=== PATIENT | male | born 1990 | race Caucasian/White ===

== ENCOUNTER 2016-11-23 17:05 | Observation (INO) | payer MEDICARE, MEDICAID ==
[2016-11-23] VITALS (7 sets, daily range): BP systolic 140–184; BP diastolic 66–87; PULSE 71–88; RESP 16–20; TEMP 96.9–97.7; O2SAT 98–100
[~2016-11-23] VITALS: Ht 162.6 cm; Wt 139.1 kg
[~2016-11-23 17:05] MED LIST: LAMO25 PO; METH36 PO; QUET50XR PO
--- NOTE | 2016-11-23 18:26 | PD ---
HPI Chief Complaint: Chest Pain Time Seen by Provider: 18:10 Travel History International Travel<30 days: No Contact w/Intl Traveler<30days: No Traveled to known affect area: No History of Present Illness HPI 26-year-old male presents to the emergency room via ambulance for evaluation of left-sided chest pain that started 3 hours prior to arrival. Patient was sitting down, not doing anything strenuous when pain started. Describes it as sharp, squeezing, constant. Localized to the left anterior lower chest without radiation. Pain was worsened with walking. Mother gave him baby aspirin, 3 Motrin, and Prevacid without relief in symptoms. There was no associated diaphoresis, shortness of breath, nausea, vomiting, or dizziness. Patient states pain lasted approximately 4 hours and subsided while he was in the waiting room. He asked his mom to call an ambulance after 3 hours of pain. He has history of hypercholesterolemia and hyperlipidemia but is not on any medication. His mother had open heart surgery at 38 years old. He is on Lamictal, Seroquel, and concerned for depression and ADHD. PFSH Past Medical History ADHD: Yes Autoimmune Disease: No Blood Disorders: No Bipolar Disorder: Yes Anxiety: Yes Depression: Yes Cancer: No Cardiovascular Problems: Yes High Cholesterol: Yes Diminished Hearing: No Endocrine: No Gastrointestinal Disorders: Yes (ENLARGED LIVER) Genitourinary: No Headaches: Yes Hepatitis: Yes (HX OF LIVER DISEASE - ) Immune Disorder: No Musculoskeletal: No Neurologic: No Psychiatric: Yes (SEEING PSYCHIATRIST SINCE AGE 7) Reproductive: No Respiratory: No Immunizations Current: Yes (UTD) Migraines: No Seizures: No Past Surgical History Abdominal Surgery: No Appendectomy: No Cardiac Surgery: No Cholecystectomy: No Ear Surgery: No Endocrine Surgery: No Eye Surgery: No Genitourinary Surgery: No Gynecologic Surgery: No Oral Surgery: No Thoracic Surgery: No Tympanostomy Tube: Yes (BILAT EARS) Other Surgery: Yes (LIVER BIOPSY X 3 TIMES) Social History Alcohol Use: No Tobacco Use: No Substance Use: No Allergies-Medications (Allergen,Severity, Reaction): Coded Allergies: No Known Allergies (Verified , 11/23/16) Reported Meds & Prescriptions Reported Meds & Active Scripts Active Seroquel XR (Quetiapine Fumarate) 50 Mg Tab 50 Mg PO 2 HS Concerta (Methylphenidate HCl) 36 Mg Gladis 36 Mg PO DAILY Lamictal (Lamotrigine) 25 Mg Tab 25 Mg PO DAILY Review of Systems Except as stated in HPI: all other systems reviewed are Neg Physical Exam Narrative GENERAL: Well-nourished, morbidly obese male in no acute distress. Afebrile. Ambulatory. SKIN: Focused skin assessment warm/dry. HEAD: Normocephalic. EYES: No scleral icterus. No injection or drainage. NECK: Supple, trachea midline. No JVD or lymphadenopathy. CARDIOVASCULAR: Regular rate and rhythm without murmurs, gallops, or rubs. RESPIRATORY: Breath sounds equal bilaterally. No accessory muscle use. CHEST: Nontender throughout without deformity or crepitance. No retractions or use of accessory muscles. GASTROINTESTINAL: Abdomen soft, non-tender, nondistended. Data Data Last Documented VS Vital Signs Date Time Temp Pulse Resp B/P Pulse Ox O2 Delivery O2 Flow Rate FiO2 11/23/16 19:46 85 20 140/68 98 11/23/16 19:31 Room Air 11/23/16:17 97.7 Orders Electrocardiogram (11/23/16 18:19) Basic Metabolic Panel (Bmp) (11/23/16 18:19) Ckmb (Isoenzyme) Profile (11/23/16 18:19) Complete Blood Count With Diff (11/23/16 18:19) Magnesium (Mg) (11/23/16 18:19) Prothrombin Time / Inr (Pt) (11/23/16 18:19) Act Partial Throm Time (Ptt) (11/23/16 18:19) Troponin I (11/23/16 18:19) Chest, Single Ap (11/23/16 18:19) Ecg Monitoring (11/23/16 18:19) Bilateral Bp Monitoring (11/23/16 18:19) Iv Access Insert/Monitor (11/23/16 18:19) Oximetry (11/23/16 18:19) Oxygen Administration (11/23/16 18:19) Aspirin Chew (Aspirin Chew) (11/23/16 18:30) Sodium Chloride 0.9% Flush (Ns Flush) (11/23/16 18:30) Lipase (11/23/16 18:19) Nitroglycerin Sl (Nitrostat Sl) (11/23/16 19:45) CKMB (11/23/16 19:15) CKMB% (11/23/16 19:15) Admit Order (Ed Use Only) (11/23/16 20:24) Vital Signs (Adult) Q4H (11/23/16 20:24) Cardiac Rhythm .As Directed (11/23/16 20:24) Notify Dr: Other .PRN (11/23/16 20:24) Notify Dr. 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 [place].Q8H (11/23/16 20:24) Labs Laboratory Tests Test 11/23/16 19:15 White Blood Count 11.3 TH/MM3 Red Blood Count 4.82 MIL/MM3 Hemoglobin 14.1 GM/DL Hematocrit 42.0 % Mean Corpuscular Volume 87.1 FL Mean Corpuscular Hemoglobin 29.4 PG Mean Corpuscular Hemoglobin 33.7 % Concent Red Cell Distribution Width 11.9 % Platelet Count 215 TH/MM3 Mean Platelet Volume 9.0 FL Neutrophils (%) (Auto) 72.7 % Lymphocytes (%) (Auto) 18.5 % Monocytes (%) (Auto) 5.5 % Eosinophils (%) (Auto) 2.4 % Basophils (%) (Auto) 0.9 % Neutrophils # (Auto) 8.2 TH/MM3 Lymphocytes # (Auto) 2.1 TH/MM3 Monocytes # (Auto) 0.6 TH/MM3 Eosinophils # (Auto) 0.3 TH/MM3 Basophils # (Auto) 0.1 TH/MM3 CBC Comment DIFF FINAL Differential Comment Prothrombin Time 10.8 SEC Prothromb Time International 1.0 RATIO Ratio Activated Partial 31.4 SEC Thromboplast Time Sodium Level 141 MEQ/L Potassium Level 3.8 MEQ/L Chloride Level 107 MEQ/L Carbon Dioxide Level 26.1 MEQ/L Anion Gap 8 MEQ/L Blood Urea Nitrogen 8 MG/DL Creatinine 0.85 MG/DL Estimat Glomerular Filtration 111 ML/MIN Rate Random Glucose 84 MG/DL Calcium Level 8.9 MG/DL Magnesium Level 2.1 MG/DL Total Creatine Kinase 126 U/L Creatine Kinase MB 1.5 NG/ML Troponin I LESS THAN 0.02 NG/ML Lipase 95 U/L MDM Medical Decision Making Medical Screen Exam Complete: Yes Emergency Medical Condition: Yes Medical Record Reviewed: Yes Differential Diagnosis Pancreatitis, CAD, gas pain, angina Narrative Course 26-year-old male presents to the emergency room via ambulance for evaluation of left-sided sharp/squeezing chest pain without radiation that lasted about 4 hours. Patient was asymptomatic on evaluation. Patient was resting when it started. No associated symptoms. IV access established and patient placed on cardiac telemetry. EKG shows sinus arrhythmia, similar from previous. No concern for ST changes, signed off by my attending physician. Patient's did have recurrence of pain while in the ED and was given sublingual nitroglycerin which did not improve symptoms. CBC and BMP are unremarkable. Troponin and lipase are negative. Patient has strong family history of early onset cardiac disease, is morbidly obese, and has dyslipidemia. Given risk factors, he should be evaluated for cardiac etiology of pain. Patient will be admitted to chest pain center for further tests. He understands and agrees to plan. Diagnosis Primary Impression: Chest pain Qualified Code: R07.9 - Chest pain, unspecified type Admitting Information Admitting Physician Requests: Observation Condition: Stable Shelley Radford Nov 23, 2016 18:26 Shelley Radford Nov 23, 2016 18:26
[2016-11-23] MEDS ORDERED: ASPIRIN 81 MG CHEW TAB PO ONE (18:30)
[2016-11-23] MEDS ORDERED: SODIUM CHLORIDE 0.9% FLUSH 10 ML FLUSH IVF PRN (18:30)
--- NOTE | 2016-11-23 18:53 | RADRPT ---
EXAM DATE/TIME: 11/23/2016 18:33 [facility] COMPARISON: No previous studies available for comparison. INDICATIONS : Left chest pain. MEDICAL HISTORY : None. SURGICAL HISTORY : None. ENCOUNTER: Initial ACUITY: 1 day PAIN SCORE: 3/10 LOCATION: Left chest FINDINGS: A single view of the chest demonstrates the lungs to be symmetrically aerated without evidence of mas s, infiltrate or effusion. The cardiomediastinal contours are unremarkable. Osseous structures are intact. CONCLUSION: No acute disease. Cortez Vuong MD on November 23, 2016 at 18:51 Board Certified Radiologist. This report was verified electronically.
[2016-11-23 19:24] LABS: AUTOMATED NEUTROPHIL # 8.2 TH/MM3 (1.8-7.7); BASOPHIL # 0.1 TH/MM3 (0-0.2); BASOPHIL % 0.9 % (0.0-2.0); EOSINOPHIL # 0.3 TH/MM3 (0-0.4); EOSINOPHIL % 2.4 % (0.0-4.0); HEMO FLAGS DIFF FINAL; LYMPH % 18.5 % (9.0-44.0); LYMPHOCYTE # 2.1 TH/MM3 (1.0-4.8); MEAN CELL VOLUME 87.1 FL (80.0-100.0); MEAN CORPUSCULAR HEMOGLOBIN 29.4 PG (27.0-34.0); MEAN CORPUSCULAR HGB CONC 33.7 % (32.0-36.0); MONO % 5.5 % (0.0-8.0); NEUT % 72.7 % (16.0-70.0); PLATELET COUNT 215 TH/MM3 (150-450); RED BLOOD COUNT 4.82 MIL/MM3 (4.50-5.90); RED CELL DISTRIBUTION WIDTH 11.9 % (11.6-17.2); WHITE BLOOD COUNT 11.3 TH/MM3 (4.0-11.0)
[2016-11-23 19:32] LABS: CHLORIDE 107 MEQ/L (98-107); POTASSIUM 3.8 MEQ/L (3.5-5.1); SODIUM (NA) 141 MEQ/L (136-145)
[2016-11-23 19:35] LABS: ANION GAP 8 MEQ/L (5-15); BICARBONATE 26.1 MEQ/L (21.0-32.0)
[2016-11-23 19:36] LABS: BLOOD UREA NITROGEN 8 MG/DL (7-18); MAGNESIUM 2.1 MG/DL (1.5-2.5)
[2016-11-23 19:38] LABS: APTT (PATIENT) 31.4 SEC (24.3-30.1); PROTHROMBIN TIME - PATIENT 10.8 SEC (9.8-11.6)
[2016-11-23 19:39] LABS: GLOMERULAR FILTRATION RATE 111 ML/MIN (>89)
[2016-11-23 19:42] LABS: CREATINE KINASE 126 U/L (39-308)
[2016-11-23] MEDS ORDERED: NITROGLYCERIN 0.4 MG SL 25 TABS/BTL SL ONE (19:45)
[2016-11-23 19:54] LABS: CKMB 1.5 NG/ML (0.5-3.6)
[2016-11-23 22:22] LABS: CREATINE KINASE 113 U/L (39-308)
[2016-11-23] MEDS ORDERED: NALOXONE HCL 0.4 MG/ML AMP IV PRN (22:30)
[2016-11-23] MEDS ORDERED: ONDANSETRON HCL 4 MG/2 ML VIAL IVP PRN (22:30)
[2016-11-23 22:35] LABS: CKMB 1.3 NG/ML (0.5-3.6)
[2016-11-23] MEDS: ACETAMINOPHEN 325 MG TAB PO PRN (22:41)
[2016-11-24] VITALS: BP 150/87; PULSE 77; RESP 20; TEMP 97.4; O2SAT 99
[2016-11-24 01:00] VITALS: O2SAT 98
[2016-11-24 03:21] LABS: CREATINE KINASE 135 U/L (39-308)
[2016-11-24] MEDS: ACETAMINOPHEN 325 MG TAB PO PRN (03:26)
[2016-11-24 03:33] LABS: CKMB 1.7 NG/ML (0.5-3.6)
[2016-11-24 04:00] VITALS: BP 162/91; PULSE 63; RESP 21; TEMP 96; O2SAT 99
[2016-11-24] MEDS: NITROGLYCERIN 0.4 MG SL 25 TABS/BTL SL PRN ×2 (04:29→04:36)
[2016-11-24] MEDS ORDERED: KETOROLAC TROMETHAMINE 30 MG/ML (IVP) VIAL IV PUSH ONE (05:00)
[2016-11-24 08:00] VITALS: BP 148/90; PULSE 91; RESP 21; TEMP 96; O2SAT 96; O2SAT 98
[2016-11-24] MEDS ORDERED: MORPHINE SULFATE 4 MG/ML INJ IV PRN (08:15)
[2016-11-24] MEDS ORDERED: ACETAMINOPHEN/HYDROcodone 325 MG/7.5 MG TAB PO PRN (08:15)
[2016-11-24] MEDS ORDERED: cloNIDine HCL 0.1 MG TAB PO PRN (08:30)
--- NOTE | 2016-11-24 08:31 | HHI.HP ---
[facility] No Primary Care Physician Admission Diagnosis chest pain Diagnoses: (1) Chest pain Diagnosis: Principal (2) Hypertensive urgency Diagnosis: Principal Chief Complaint: chest pain Travel History International Travel<30 Days: No Contact w/Intl Traveler <30 Da: No Traveled to Known Affected Are: No History of Present Illness Written by Jannette Pritchett PA-C acting as scribe for Dr. Campos on 11/24/16 at 0820. 26-year-old male with history of autism, depression, benign liver tumors, hypercholesterolemia/triglyceridemia, and early family history of CAD is admitted to chest pain center. [id number] present at bedside with patient 's mother on the phone who assisted with medical history. The patient points to his left anterior lower ribs as the site of pain stating it started at 2 PM yesterday and occurred over the entire night. He describes the pain as sharp and stabbing rating it a 9-10/10. He states he took 2 baby aspirin at home without relief. He denies any pain currently. Denies any radiation elsewhere including to the upper chest. Denies any numbness or tingling or diaphoresis. He denies any nausea, vomiting, diarrhea, constipation. His last bowel movement was yesterday. He denies any hematochezia or melena. Denies any fevers or chills, recent cold or cough symptoms. Denies any urinary symptoms. Denies any injuries or heavy lifting. Review of Systems Except as stated in HPI: all other systems reviewed are Neg Past Family Social History Past Medical History Hypercholesterolemia Hypertriglyceridemia Autism Major depression Benign liver tumors; had ultrasound recently. Past Surgical History Liver biopsy Reported Medications Reported Meds & Active Scripts Active Seroquel XR (Quetiapine Fumarate) 50 Mg Tab 50 Mg PO 2 HS Concerta (Methylphenidate HCl) 36 Mg Gladis 36 Mg PO DAILY Lamictal (Lamotrigine) 25 Mg Tab 25 Mg PO DAILY Allergies: Coded Allergies: No Known Allergies (Verified , 11/23/16) Family History Mother: 3 open heart surgeries starting at the age of 38. Social History Denies alcohol use, tobacco use, or illicit drug use. Physical Exam Vital Signs Vital Signs Date Time Temp Pulse Resp B/P Pulse Ox O2 Delivery O2 Flow Rate FiO2 11/24/16 04:00 96.0 63 21 162/91 99 11/24/16 01:00 98 21 11/24/16 00:00 97.4 77 20 150/87 99 11/23/16 23:03 84 11/23/16 21:30 88 11/23/16 20:54 96.9 80 20 144/86 99 11/23/16 19:46 85 20 140/68 98 11/23/16 19:31 84 18 166/66 99 Room Air 152/70 11/23/16 18:24 100 Room Air 11/23/16 18:24 18 100 Room Air 11/23/16 18:17 97.7 71 16 184/87 100 Physical Exam GENERAL: This is a pleasant morbidly obese patient, in no apparent distress. SKIN: No rashes, ecchymoses or lesions. Warm and dry. HEAD: Atraumatic. Normocephalic. EYES: No scleral icterus. No injection or drainage. NECK: No lymphadenopathy. CHEST: No reproducible tenderness over anterior and lateral left lower ribs. CARDIOVASCULAR: Regular rate and rhythm without murmurs, gallops, or rubs. RESPIRATORY: Clear to auscultation. Breath sounds equal bilaterally. No wheezes , rales, or rhonchi. GASTROINTESTINAL: Abdomen soft, non-tender, nondistended. No guarding. MUSCULOSKELETAL: No lower extremity edema bilaterally. NEUROLOGICAL: Awake and alert. Motor grossly within normal limits. Normal speech. PSYCHIATRIC: Normal mood and affect. Laboratory Laboratory Tests Test 11/23/16 11/23/16 11/24/16 19:15 21:56 03:00 White Blood Count 11.3 Red Blood Count 4.82 Hemoglobin 14.1 Hematocrit 42.0 Mean Corpuscular Volume 87.1 Mean Corpuscular Hemoglobin 29.4 Mean Corpuscular Hemoglobin 33.7 Concent Red Cell Distribution Width 11.9 Platelet Count 215 Mean Platelet Volume 9.0 Neutrophils (%) (Auto) 72.7 Lymphocytes (%) (Auto) 18.5 Monocytes (%) (Auto) 5.5 Eosinophils (%) (Auto) 2.4 Basophils (%) (Auto) 0.9 Neutrophils # (Auto) 8.2 Lymphocytes # (Auto) 2.1 Monocytes # (Auto) 0.6 Eosinophils # (Auto) 0.3 Basophils # (Auto) 0.1 CBC Comment DIFF FINAL Differential Comment Prothrombin Time 10.8 Prothromb Time International 1.0 Ratio Activated Partial 31.4 Thromboplast Time Sodium Level 141 Potassium Level 3.8 Chloride Level 107 Carbon Dioxide Level 26.1 Anion Gap 8 Blood Urea Nitrogen 8 Creatinine 0.85 Estimat Glomerular Filtration 111 Rate Random Glucose 84 Calcium Level 8.9 Magnesium Level 2.1 Total Creatine Kinase 126 113 135 Creatine Kinase MB 1.5 1.3 1.7 Troponin I LESS THAN 0.02 LESS THAN 0.02 LESS THAN 0.02 Lipase 95 Result Diagram: 11/23/16191411/23/161914 Imaging Last Impressions Chest X-Ray 11/23/161818 Signed Impressions: Service Date/Time: Wednesday, November 23, 2016 18:33 - CONCLUSION: No acute disease. Cortez Vuong MD Assessment and Plan Problem List: (1) Chest pain ICD Code: R07.9 Status: Acute Assessment and Plan 26-year-old male with: Atypical chest pain: Left lower ribs, sharp lasting all night. Troponin 3 less than 0.02. EKGs personally interpreted. EKG #1 with sinus arrhythmia, but remaining two EKGs with normal sinus rhythm. No obvious evidence of ischemia. Chest x-ray normal. Patient has risk factors including morbid obesity, hyperlipidemia, and family history of early onset coronary artery disease. He additionally has been hypertensive. -Daily 325 mg aspirin -Telemetry -Nitroglycerin/[place]/morphine prn chest pain -Patient will undergo Lexiscan this morning. Hypertensive urgency: BP 184/87 on arrival. Has improved somewhat but still remains elevated. -Clonidine prn SBP>160 and/or DBP >90. -Monitor Autism/Depression: Continue home medications. GI prophylaxis: Pepcid due to aspirin use. DVT prophylaxis: SCDs. Myocardial perfusion scan normal. Mother at bedside this afternoon, she and patient informed of results. Telemetry reviewed with sinus arrhythmia, and mother informed; likely chronic as patient had this on EKG from 2010 as well. Patient's BP improved but SBP still in 140's. Mother states it has been high. Mother advised to keep log at home and follow up with PCP regarding this as well as cholesterol. Discharge disposition: Home in stable condition. Diet: Heart healthy, low fat, weight management. Patient advised accordingly. Activity: Regular Medications: Resume home meds. Follow up: PCP Dr. Barba. Patient's mother is somnolent and cannot remain awake while I speak to her. I have asked the nurse to ensure that someone else can safely drive she and the patient home as I do not feel it is safe for her to drive the patient at this time. This note was transcribed by fish PUENTE I, Dr. Ángel Campos personally performed the history, physical exam, and medical decision making; and confirmed the accuracy of the information in the transcribed note. Authenticated by Dr. Ángel Campos on 11/24/16 at 08:21. Code Status Full code Discussed Condition With patient, [id number] Problem Qualifiers (1) Chest pain: Qualified Code: R07.9 - Chest pain, unspecified type Jannette Pritchett Nov 24, 2016 08:31 Ángel Campos MD Nov 24, 2016 08:38
[2016-11-24] MEDS ORDERED: FAMOTIDINE 20 MG TAB PO SCH (09:00)
[2016-11-24] MEDS ORDERED: ASPIRIN 325 MG TAB PO SCH (09:00)
[2016-11-24 12:00] VITALS: BP 142/91; PULSE 88; RESP 20; TEMP 98; O2SAT 97
--- NOTE | 2016-11-24 13:58 | RADRPT ---
EXAM DATE/TIME: 11/24/2016 11:57 [facility] COMPARISON: No previous studies available for comparison. INDICATIONS : Chest pain and hypertension. Angina. DOSE: 35.0 mCi Tc99m Myoview at stress. 11.0 mCi Tc99m Myoview at rest. 0.4 mg Lexiscan STRESS SYMPTOMS: weird feeling and heart racing. EJECTION FRACTION: 58% MEDICAL HISTORY : Hypercholesterolemia. Autism. SURGICAL HISTORY : Liver biopsy. ENCOUNTER: Initial ACUITY: 1 day PAIN SCALE: 1/10 LOCATION: Bilateral chest TECHNIQUE: The patient underwent pharmacologic stress with infusion of prescribed dose. Continuous ECG tracing was monitored during stress. Gated SPECT imaging was performed after stress and conventional SPECT i maging was performed at rest. The examination was performed on a SPECT/CT scanner, both attenuation and non-corrected datasets were reviewed. FINDINGS: DISTRIBUTION: The maximum perfused segment at stress is in the inferior wall. PERFUSION STUDY: The pattern of perfusion at stress is within normal limits. GATED STUDY: There is intact wall motion and thickening without hypokinetic or dyskinetic segments. CONCLUSION: No evidence of fixed or reversible perfusion abnormalities. Normal wall motion and ejection fraction. RISK CATEGORY: Low (<1% Annual Mortality Rate) Kale Lentz MD on November 24, 2016 at 13:55 Board Certified Radiologist. This report was verified electronically.
--- NOTE | 2016-11-24 14:53 | TR ---
Date Performed: 11/24/2016 Time Performed: 12:39:30 DOCTOR: Sundar Pastor DRUG LIST: CLINICAL HISTORY: REASON FOR TEST: REASON FOR ENDING: OBSERVATION: CONCLUSION: Lexiscan stress test was performed under standard four minute protocol. Radionuclid e was injected one minute prior to ending the test. No electrocardiographic abormalities were present to suggest ischemia. Nuclear imaging and interpretation are pending. COMMENTS:
--- NOTE | 2016-11-24 14:55 | EKG ---
Date Performed: 11/24/2016 Time Performed: 01:06:06 PTAGE: 26 years EKG: Sinus rhythm MODERATE VOLTAGE CRITERIA FOR LVH, CONSIDER NORMAL VARIANT BORDERLINE ECG PREVIOUS TRACING : 11/23/2016 21.50 Since previous tracing, no significant change noted DOCTOR: Sundar Pastor Interpretating Date/Time 11/24/2016 14:53:52
--- NOTE | 2016-11-24 14:56 | EKG ---
Date Performed: 11/23/2016 Time Performed: 21:50:40 PTAGE: 26 years EKG: Sinus rhythm VOLTAGE CRITERIA FOR LVH NONSPECIFIC T-WAVE ABNORMALITY ABNORMAL ECG PREVIOUS TRACING : 11/23/2016 18.29 Since previous tracing, no significant change noted DOCTOR: Sundar Pastor Interpretating Date/Time 11/24/2016 14:55:15
--- NOTE | 2016-11-24 14:59 | EKG ---
Date Performed: 11/23/2016 Time Performed: 18:29:12 PTAGE: 26 years EKG: Sinus rhythm WITH SINUS ARRHYTHMIA MODERATE VOLTAGE CRITERIA FOR LVH, CONSIDER NORMAL VARIANT NONSPECIFIC T-WAVE ABNORMALITY BORDERLINE ECG PREVIOUS TRACING : 07/31/2010 12.18 Since previous tracing, no significant change noted DOCTOR: Sundar Pastor Interpretating Date/Time 11/24/2016 14:57:44
--- NOTE | 2016-11-24 15:03 | HHI.DCPOC ---
Discharge Care Plan Diagnosis: (1) Chest pain (2) Hypertensive urgency Your Health Problems Are: Chest Pain Goals to Promote Your Health * To prevent worsening of your condition and complications * To maintain your health at the optimal level Directions to Meet Your Goals Take your medications as prescribed Follow your dietary instruction Follow activity as directed Keep your appointments as scheduled Take your immunizations and boosters as scheduled If your symptoms worsen call your PCP, if no PCP go to Urgent Care Center or Emergency Room Smoking is Dangerous to Your Health. Avoid second hand smoke Call the 24-hour hour crisis hotline for domestic abuse at Jannette Pritchett Nov 24, 2016 15:03
== END 2016-11-24 16:43 | disposition home or self-care (01) ==
LOC: PHEFT 17:05 → PHEDA 20:27 → PH3B 20:54
PROVIDERS: ADMIT Hospitalist; ATTEND Hospitalist
DX: R07.89 Other chest pain (principal); I16.0 Hypertensive urgency; I10 Essential (primary) hypertension; E78.5 Hyperlipidemia, unspecified; E78.00 Pure hypercholesterolemia, unspecified; E78.1 Pure hyperglyceridemia; K75.9 Inflammatory liver disease, unspecified; R94.31 Abnormal electrocardiogram [ECG] [EKG]; F41.9 Anxiety disorder, unspecified; F90.9 Attention-deficit hyperactivity disorder, unspecified type; E66.01 Morbid (severe) obesity due to excess calories; F31.9 Bipolar disorder, unspecified; F84.0 Autistic disorder; Z79.899 Other long term (current) drug therapy; Z82.49 Family history of ischemic heart disease and other diseases of the circulatory system
CPT/HCPCS: 71010; 78452; 80048; 82550; 82552; 83690; 83735; 84484; 85025; 85610; 85730; 93005; 93017; 96374; 96376; 99285; A9502; G0378; J1885

== ENCOUNTER 2017-01-23 14:07 | Observation (INO) | payer MEDICARE, MEDICAID ==
[~2017-01-23] VITALS: Ht 167.6 cm; Wt 140.0 kg
[2017-01-23 14:10] VITALS: BP 143/92; PULSE 83; RESP 18; TEMP 97.8; O2SAT 98
--- NOTE | 2017-01-23 14:15 | PD ---
Physical Exam Time Seen by Provider: 14:12 Narrative 27-year-old male presents emergency Department with complaint of left-sided chest pain that started about an hour ago. Described as stabbing sensation. Reports an episode of dry heaving without vomiting. No radiation of pain. Denies recent illness. Denies shortness of breath, fever. Patient seen in triage. Vital signs reviewed. Patient awaiting bed placement. Data Data Last Documented VS Vital Signs Date Time Temp Pulse Resp B/P (MAP) Pulse Ox O2 Delivery O2 Flow Rate FiO2 01/23/17 14:10 97.8 83 18 143/92 (109) 98 MDM Supervised Visit with NOEMÍ: Ayaka Smith Jan 23, 2017 14:14
--- NOTE | 2017-01-23 15:46 | RADRPT ---
EXAM DATE/TIME: 01/23/2017 14:32 [facility] COMPARISON: No previous studies available for comparison. INDICATIONS : Chest pain. MEDICAL HISTORY : Hypertension. SURGICAL HISTORY : None. ENCOUNTER: Initial ACUITY: 1 day PAIN SCORE: 8/10 LOCATION: Bilateral chest FINDINGS: PA and lateral views of the chest demonstrate the lungs to be symmetrically aerated without evidence of mass, infiltrate or effusion. The cardiomediastinal contours are unremarkable. Osseous structure s are intact. CONCLUSION: Normal examination. Dereje Jiménez Jr., MD on January 23, 2017 at 15:43 Board Certified Radiologist. This report was verified electronically.
[2017-01-23 18:01] VITALS: BP 118/72; PULSE 69; RESP 23; O2SAT 99
[2017-01-23] MEDS ORDERED: QUET50XR PO (18:01)
[2017-01-23] MEDS ORDERED: SODIUM CHLORIDE 0.9% FLUSH 10 ML FLUSH IVF PRN (18:30)
--- NOTE | 2017-01-23 18:33 | PD ---
HPI Chief Complaint: Chest Pain Time Seen by Provider: 18:23 Travel History International Travel<30 days: No Contact w/Intl Traveler<30days: No Traveled to known affect area: No History of Present Illness HPI 27-year-old male patient history of hypertension, diabetes, and a very strong family history of cardiac disease presents to the ER today with one-day history of left chest pain which she stated was a 9 out of 10 initially, now 4 out of 10 , related to nausea and some dry heaving. He denies any vomiting, fevers, diarrhea, abdominal pains, or other symptoms now. He apparently was told by his office clin asst, Dr. Davis, to come to the hospital for further evaluation. Modifying Factors: None Associated Signs & Symptoms: Chest pain Risk Factors: High blood pressure, high cholesterol, diabetes, family history of heart disease PFSH Past Medical History ADHD: Yes Autoimmune Disease: No Blood Disorders: No Bipolar Disorder: Yes Anxiety: No (patient denies) Depression: No (patient denies) Cancer: No Cardiovascular Problems: Yes High Cholesterol: Yes Chest Pain: Yes Diminished Hearing: No Endocrine: No Gastrointestinal Disorders: Yes (ENLARGED LIVER) Genitourinary: No Headaches: Yes Immune Disorder: No Implanted Vascular Access Dvce: No Musculoskeletal: No Neurologic: No Psychiatric: Yes (SEEING PSYCHIATRIST SINCE AGE 7) Reproductive: No Respiratory: No Immunizations Current: Yes (UTD) Migraines: No Seizures: No Past Surgical History Abdominal Surgery: No Appendectomy: No Cardiac Surgery: No Cholecystectomy: No Ear Surgery: No Endocrine Surgery: No Eye Surgery: No Genitourinary Surgery: No Gynecologic Surgery: No Neurologic Surgery: No Oral Surgery: No Thoracic Surgery: No Tympanostomy Tube: Yes (BILAT EARS) Other Surgery: Yes (LIVER BIOPSY X 3 TIMES) Social History Alcohol Use: No Tobacco Use: No Substance Use: No Allergies-Medications (Allergen,Severity, Reaction): Coded Allergies: No Known Allergies (Verified , 01/23/17) Reported Meds & Prescriptions Reported Meds & Active Scripts Active Lamictal (Lamotrigine) 25 Mg Tab 25 Mg PO DAILY Reported Amitiza (Lubiprostone) 8 Mcg Cap 8 Mg PO BID Lactulose 10 Gram/15 Ml (15 Ml) Solution Seroquel XR (Quetiapine Fumarate) 50 Mg Tab 100 Mg PO HS Review of Systems Except as stated in HPI: all other systems reviewed are Neg Physical Exam Narrative GENERAL: Well-developed obese young white male patient currently in no acute distress. Awake and oriented 3. SKIN: Focused skin assessment warm/dry. HEAD: Atraumatic. Normocephalic. EYES: Pupils equal and round. No scleral icterus. No injection or drainage. ENT: No nasal bleeding or discharge. Mucous membranes pink and moist. NECK: Trachea midline. No JVD. CARDIOVASCULAR: Regular rate and rhythm. No murmur appreciated. Pulses are present and equal bilaterally. RESPIRATORY: No accessory muscle use. Clear to auscultation. Breath sounds equal bilaterally. GASTROINTESTINAL: Abdomen soft, non-tender, nondistended. Hepatic and splenic margins not palpable. MUSCULOSKELETAL: No obvious deformities. No clubbing. No cyanosis. No edema. NEUROLOGICAL: Awake and alert. No obvious cranial nerve deficits. Motor grossly within normal limits. Normal speech. PSYCHIATRIC: Appropriate mood and affect; insight and judgment normal. Data Data Last Documented VS Vital Signs Date Time Temp Pulse Resp B/P (MAP) Pulse Ox O2 Delivery O2 Flow Rate FiO2 01/23/17 18:34 100 Room Air 01/23/17 18:34 01/23/17 18:01 69 23 01/23/17 14:10 97.8 Orders Orders Electrocardiogram (01/23/17 14:15) Chest, Pa & Lat (01/23/17 14:15) Electrocardiogram (01/23/17 18:23) B-Type Natriuretic Peptide (01/23/17 18:) Ckmb (Isoenzyme) Profile (01/23/17 18:) Complete Blood Count With Diff (01/23/17 18:) Comprehensive Metabolic Panel (01/23/17 18:) Magnesium (Mg) (01/23/17 18:) Prothrombin Time / Inr (Pt) (01/23/17 18:) Act Partial Throm Time (Ptt) (01/23/17:) Troponin I (01/23/17:) Chest, Single Ap (01/23/17 18:) Ecg Monitoring (01/23/17 18:) Bilateral Bp Monitoring (01/23/17 18:) Iv Access Insert/Monitor (01/23/17:) Oximetry (01/23/17:) Oxygen Administration (01/23/17 18:23) Sodium Chloride 0.9% Flush (Ns Flush) (01/23/17 18:30) CKMB (01/23/17 18:20) CKMB% (01/23/17 18:20) Labs Laboratory Tests Test 01/23/17 18:20 Blood Urea Nitrogen 9 MG/DL Creatinine 0.82 MG/DL Random Glucose 77 MG/DL Total Protein 7.8 GM/DL Albumin 3.8 GM/DL Calcium Level 8.9 MG/DL Magnesium Level 2.0 MG/DL Alkaline Phosphatase 69 U/L Aspartate Amino Transf (AST/SGOT) 56 U/L Alanine Aminotransferase (ALT/SGPT) 74 U/L Total Bilirubin 0.4 MG/DL Sodium Level 138 MEQ/L Potassium Level 4.6 MEQ/L Chloride Level 105 MEQ/L Carbon Dioxide Level 24.4 MEQ/L Anion Gap 9 MEQ/L Estimat Glomerular Filtration Rate 114 ML/MIN Total Creatine Kinase 212 U/L Creatine Kinase MB 1.3 NG/ML Troponin I LESS THAN 0.02 NG/ML MDM Medical Decision Making Medical Screen Exam Complete: Yes Emergency Medical Condition: Yes Medical Record Reviewed: Yes Interpretation(s) EKG shows NSR, no ST elevation or depression, and no arrhythmias. No significant T-wave inversions. Last 24 hours Impressions Chest X-Ray 01/23/17 1415 Signed Impressions: Service Date/Time: Monday, January 23, 2017 14:32 - CONCLUSION: Normal examination. Dereje Jiménez Jr., MD Laboratory Tests Test 01/23/17 18:20 Aspartate Amino Transf (AST/SGOT) 56 U/L (15-37) Troponin I LESS THAN 0.02 NG/ML Differential Diagnosis Chest pains: ACS versus pneumonia versus anxiety versus gastritis Narrative Course Cardiac workup was initiated. Case is discussed with Dr. Davis who states that if negative, patient can be admitted to chest pain center for further evaluation. Physician Communication Physician Communication Case signed out to Dr. Paul at 7 PM awaiting finish workup. Diagnosis Primary Impression: Chest pain Admitting Information Admitting Physician Requests: it Karen Danielle MD Jan 23, 2017 18:33
[2017-01-23 18:34] VITALS: O2SAT 100
[2017-01-23] MEDS ORDERED: AMIT8CAP6 PO (18:43)
[2017-01-23] MEDS ORDERED: LACT10SO5 (18:43)
[2017-01-23 18:59] LABS: ALT (GPT) 74 U/L (12-78)
[2017-01-23 19:01] LABS: ANION GAP 9 MEQ/L (5-15)
[2017-01-23 19:03] LABS: ALKALINE PHOSPHATASE 69 U/L (45-117); AST (GOT) 56 U/L (15-37); BICARBONATE 24.4 MEQ/L (21.0-32.0); BLOOD UREA NITROGEN 9 MG/DL (7-18); CHLORIDE 105 MEQ/L (98-107); CREATINE KINASE 212 U/L (39-308); GLOMERULAR FILTRATION RATE 114 ML/MIN (>89); SODIUM (NA) 138 MEQ/L (136-145); TOTAL BILIRUBIN ADULT 0.4 MG/DL (0.2-1.0)
[2017-01-23 19:07] LABS: POTASSIUM 4.6 MEQ/L (3.5-5.1)
[2017-01-23 19:20] LABS: CKMB 1.3 NG/ML (0.5-3.6)
--- NOTE | 2017-01-23 19:40 | RADRPT ---
EXAM DATE/TIME: 01/23/2017 18:56 [facility] COMPARISON: CHEST SINGLE AP, November 23, 2016, 18:33. INDICATIONS : Left sided chest pain starting today MEDICAL HISTORY : Hypertension. SURGICAL HISTORY : None. ENCOUNTER: Initial ACUITY: 1 day PAIN SCORE: 7/10 LOCATION: Left chest FINDINGS: A single view of the chest demonstrates the lungs to be symmetrically aerated without evidence of mas s, infiltrate or effusion. The cardiomediastinal contours are unremarkable. Osseous structures are intact. CONCLUSION: No acute disease. No significant change has occurred. Marcelino Hummel MD on January 23, 2017 at 19:38 Board Certified Radiologist. This report was verified electronically.
[2017-01-23 21:04] LABS: AUTOMATED NEUTROPHIL # 8.4 TH/MM3 (1.8-7.7); BASOPHIL # 0.1 TH/MM3 (0-0.2); BASOPHIL % 0.7 % (0.0-2.0); EOSINOPHIL # 0.1 TH/MM3 (0-0.4); EOSINOPHIL % 1.3 % (0.0-4.0); HEMATOCRIT 44.7 % (39.0-51.0); HEMO FLAGS DIFF FINAL; LYMPHOCYTE # 2.3 TH/MM3 (1.0-4.8); MEAN CELL VOLUME 87.3 FL (80.0-100.0); MEAN CORPUSCULAR HEMOGLOBIN 29.7 PG (27.0-34.0); MONO % 5.7 % (0.0-8.0); NEUT % 72.3 % (16.0-70.0); PLATELET COUNT 222 TH/MM3 (150-450); RED BLOOD COUNT 5.12 MIL/MM3 (4.50-5.90); RED CELL DISTRIBUTION WIDTH 12.8 % (11.6-17.2); WHITE BLOOD COUNT 11.6 TH/MM3 (4.0-11.0)
[2017-01-23 21:11] LABS: APTT (PATIENT) 30.8 SEC (24.3-30.1); PROTHROMBIN TIME - PATIENT 10.6 SEC (9.8-11.6)
--- NOTE | 2017-01-23 21:17 | PD ---
Physical Exam Narrative Received sign out from previous team to follow up labs and admit to chest pain center. Please see previous provider's note for further details. 27yo M with HTN, DM sent here by spring machine operator Dr. Davis for evaluation of chest pain. Plan was to admit to chest pain center if enzyme negative. Labs reviewed , CMP unremarkable except for elevation or AST which he has had before. Troponin negative. CXR showed no acute disease. Pt evaluated at bedside and chest pain has improved. Agreed with plan. Data Data Last Documented VS Vital Signs Date Time Temp Pulse Resp B/P (MAP) Pulse Ox O2 Delivery O2 Flow Rate FiO2 01/23/17 18:34 100 Room Air 01/23/17 18:34 01/23/17 18:01 69 23 01/23/17 14:10 97.8 Orders Orders Electrocardiogram (01/23/17 14:15) Chest, Pa & Lat (01/23/17 14:15) Electrocardiogram (01/23/17 18:) B-Type Natriuretic Peptide (01/23/17 18:) Ckmb (Isoenzyme) Profile (01/23/17 18:) Complete Blood Count With Diff (01/23/17:) Comprehensive Metabolic Panel (01/23/17 18) Magnesium (Mg) (01/23/17:) Prothrombin Time / Inr (Pt) (01/23/17) Act Partial Throm Time (Ptt) (01/23/17:) Troponin I (01/23/17 18:) Chest, Single Ap (01/23/17 18:) Ecg Monitoring (01/23/17) Bilateral Bp Monitoring (01/23/17:) Iv Access Insert/Monitor (01/23/17) Oximetry (01/23/17 18:) Oxygen Administration (01/23/17:) Sodium Chloride 0.9% Flush (Ns Flush) (01/23/17 18:30) CKMB (01/23/17 18:) CKMB% (01/23/17 18:) Labs Laboratory Tests Test 01/23/17 18:20 01/23/17 20:50 Blood Urea Nitrogen 9 MG/DL Creatinine 0.82 MG/DL Random Glucose 77 MG/DL Total Protein 7.8 GM/DL Albumin 3.8 GM/DL Calcium Level 8.9 MG/DL Magnesium Level 2.0 MG/DL Alkaline Phosphatase 69 U/L Aspartate Amino Transf (AST/SGOT) 56 U/L Alanine Aminotransferase (ALT/SGPT) 74 U/L Total Bilirubin 0.4 MG/DL Sodium Level 138 MEQ/L Potassium Level 4.6 MEQ/L Chloride Level 105 MEQ/L Carbon Dioxide Level 24.4 MEQ/L Anion Gap 9 MEQ/L Estimat Glomerular Filtration Rate 114 ML/MIN Total Creatine Kinase 212 U/L Creatine Kinase MB 1.3 NG/ML Troponin I LESS THAN 0.02 NG/ML White Blood Count 11.6 TH/MM3 Red Blood Count 5.12 MIL/MM3 Hemoglobin 15.2 GM/DL Hematocrit 44.7 % Mean Corpuscular Volume 87.3 FL Mean Corpuscular Hemoglobin 29.7 PG Mean Corpuscular Hemoglobin Concent 34.0 % Red Cell Distribution Width 12.8 % Platelet Count 222 TH/MM3 Mean Platelet Volume 9.1 FL Neutrophils (%) (Auto) 72.3 % Lymphocytes (%) (Auto) 20.0 % Monocytes (%) (Auto) 5.7 % Eosinophils (%) (Auto) 1.3 % Basophils (%) (Auto) 0.7 % Neutrophils # (Auto) 8.4 TH/MM3 Lymphocytes # (Auto) 2.3 TH/MM3 Monocytes # (Auto) 0.7 TH/MM3 Eosinophils # (Auto) 0.1 TH/MM3 Basophils # (Auto) 0.1 TH/MM3 CBC Comment DIFF FINAL Differential Comment Prothrombin Time 10.6 SEC Prothromb Time International Ratio 1.0 RATIO Activated Partial Thromboplast Time 30.8 SEC [facility] Supervised Visit with NOEMÍ: No Diagnosis Primary Impression: Chest pain Qualified Codes: R07.9 - Chest pain, unspecified Admitting Information Admitting Physician Requests: Sheela Steel DO Jan 23, 2017 21:17
[2017-01-23] MEDS ORDERED: SODIUM CHLORIDE 0.9% FLUSH 10 ML FLUSH IV FLUSH PRN (21:30)
[2017-01-23 22:16] VITALS: BP 143/88; PULSE 87; RESP 16; O2SAT 100
[2017-01-23 22:25] VITALS: BP 149/79; PULSE 86; RESP 16; TEMP 98.5; O2SAT 98
[2017-01-23 23:13] LABS: CREATINE KINASE 144 U/L (39-308)
[2017-01-23 23:26] LABS: CKMB 1.2 NG/ML (0.5-3.6)
[2017-01-24 02:27] LABS: CREATINE KINASE 117 U/L (39-308)
[2017-01-24 03:24] VITALS: BP 119/69; PULSE 78; RESP 17; TEMP 98.3; O2SAT 97
--- NOTE | 2017-01-24 07:57 | HHI.HP ---
HPI Primary Care Physician Scott Barba DO Chief Complaint Chest pain History of Present Illness 27-year-old male with history of autism, benign liver tumors, and major depressive disorder presents to emergency room for further evaluation of chest pain. Onset Saturday 12 PM, nonexertional he was sitting watching TV. Location left anterior lower ribs. Characterized as stabbing. Severity 5/10. No radiation of pain. Duration lasted 5-6 hours. Pain came on quickly and gradually went away. Associated symptoms nausea. Denies shortness of breath, vomiting, or diaphoresis. No known precipitating factors. No injury, trauma, or recent fall. No known relieving factors. No particular movement, position, or deep breathing and pain better or worse. Currently he is pain free. Endorses similar pain in November. At that time was admitted [facility] were he completed a chemical stress test. Testing did not suggest evidence of fixed or reversible perfusion abnormalities with normal wall function. Followed with Dr. Krys Davis after chest pain in November due to family history of cardiovascular disease. In fact, he recently completed an echocardiogram and tells me he has an appointment later this afternoon to review results of echocardiogram. He called Dr. Davis office yesterday regarding chest pain and was directed to the ER. Review of Systems General: No fatigue,weakness, fever, chills, or recent illness. Has been in his general state of health. HEENT: No GARZA, no vision changes, no nasal congestion or drainage CV: As stated above. No current chest pain, pressure, or discomfort. No palpitations. RESP: No SOB, cough, recent URI, or sputum production. GI: No nausea, vomiting, or bowel changes. Frequently has constipation and reports occasionally use of over the counter medication for constipation. No abdominal pain, distention, melena, or blood in the stool. : No dysuria EXT: No lower leg edema, no paraesthesias MS: No discomfort, change in ROM, recent injury, trauma, or fall NEURO: No difficulty with balance, LOC, motor/sensory deficits PSYCH: History of depression, No suicidal ideation, current situational stress, or anxiety. SKIN: No rashes, no concerning lesions Past Family Social History Allergies: Coded Allergies: No Known Allergies (Verified , 01/23/17) Past Medical History Autism, benign liver tumors, major depression Past Surgical History Liver biopsy Reported Medications Reported Meds & Active Scripts Active Lamictal (Lamotrigine) 25 Mg Tab 25 Mg PO DAILY Amitiza (Lubiprostone) 8 Mcg Cap 8 Mg PO BID Lactulose 10 Gram/15 Ml (15 Ml) Solution Seroquel XR (Quetiapine Fumarate) 50 Mg Tab 100 Mg PO HS Active Ordered Medications Current Medications Medications (Trade) Dose Ordered Sig/William Route Start Time Stop Time Status Last Admin (NS Flush) 2 ml UNSCH PRN IVF 01/23/17 18:30 (NS Flush) 2 ml UNSCH PRN IV FLUSH 01/23/17 21:30 (NS Flush) 2 ml BID IV FLUSH 01/24/17 09:00 Family History Mother CABG age 38, states mother is living and has had total of 3 CABG. Social History No known diabetes, hypertension, or coronary artery disease. Reports known hyperlipidemia, denies being prescribed or taking any medications currently. Denies alcohol, tobacco, or illegal drug use. Endorses a sedentary lifestyle. Currently unemployed. Past cardiac testing 11/24/2016 Lexiscan-no evidence of fixed or reversible perfusion abnormalities. Normal wall motion. EF 58%. Air Dispatcher is Dr. Krys Wu. Reports recently completing an echocardiogram. Physical Exam Vital Signs Vital Signs Date Time Temp Pulse Resp B/P (MAP) Pulse Ox O2 Delivery O2 Flow Rate FiO2 01/24/17 03:24 98.3 78 17 119/69 (86) 97 01/23/17 22:25 98.5 86 16 149/79 (102) 98 01/23/17 22:16 87 16 143/88 (106) 100 01/23/17 22:01 Room Air 01/23/17 18:34 100 Room Air 01/23/17 18:34 100 Room Air 01/23/17 18:01 69 23 118/72 (87) 99 Room Air 01/23/17 14:10 97.8 83 18 143/92 (109) 98 Physical Exam GENERAL: Alert WN, WD, NAD, , obese male HEAD: NC, AT EYES: Sclera clear, conjunctiva without injection, pupils equal and round ENT: Mucous membranes pink and moist NECK: Supple, no masses, trachea midline CV: RRR, without murmur, rub, gallop, no JVD, S1-S2 no S3-S4. Chest wall nontender with palpation. RESP: Clear lungs throughout bilateral, no crackles, wheeze, rhonchi, symmetrical chest rise, nonlabored, able to speak in full sentences ABD: Soft, NT, ND, no masses, positive bowel tones, obese BACK: No scoliosis EXT: Pulses +24, no dependent edema MS: Normal tone 4 extremities, nontender, no obvious deformities, full range of motion NEURO: CN II through CN XII grossly intact, motor strength 5/5 PSYCH: A+O 3, flat affect, appropriate speech, appropriate mood and affect, insight and judgment SKIN: Normal turgor, normal texture, no lesions, no rashes, brisk cap refill, even hair distribution Laboratory Laboratory Tests Test 01/23/17 18:20 01/23/17 20:50 01/23/17 22:40 01/24/17 01:40 Blood Urea Nitrogen 9 Creatinine 0.82 Random Glucose 77 Total Protein 7.8 Albumin 3.8 Calcium Level 8.9 Magnesium Level 2.0 Alkaline Phosphatase 69 Aspartate Amino Transf (AST/SGOT) 56 Alanine Aminotransferase (ALT/SGPT) 74 Total Bilirubin 0.4 Sodium Level 138 Potassium Level 4.6 Chloride Level 105 Carbon Dioxide Level 24.4 Anion Gap 9 Estimat Glomerular Filtration Rate 114 Total Creatine Kinase 212 144 117 Creatine Kinase MB 1.3 1.2 1.0 Troponin I LESS THAN 0.02 LESS THAN 0.02 LESS THAN 0.02 White Blood Count 11.6 Red Blood Count 5.12 Hemoglobin 15.2 Hematocrit 44.7 Mean Corpuscular Volume 87.3 Mean Corpuscular Hemoglobin 29.7 Mean Corpuscular Hemoglobin Concent 34.0 Red Cell Distribution Width 12.8 Platelet Count 222 Mean Platelet Volume 9.1 Neutrophils (%) (Auto) 72.3 Lymphocytes (%) (Auto) 20.0 Monocytes (%) (Auto) 5.7 Eosinophils (%) (Auto) 1.3 Basophils (%) (Auto) 0.7 Neutrophils # (Auto) 8.4 Lymphocytes # (Auto) 2.3 Monocytes # (Auto) 0.7 Eosinophils # (Auto) 0.1 Basophils # (Auto) 0.1 CBC Comment DIFF FINAL Differential Comment Prothrombin Time 10.6 Prothromb Time International Ratio 1.0 Activated Partial Thromboplast Time 30.8 B-Type Natriuretic Peptide 19 Result Diagram: 01/23/17204901/23/171819 Imaging Last Impressions Chest X-Ray 01/23/171822 Signed Impressions: Service Date/Time: Monday, January 23, 2017 18:56 - CONCLUSION: No acute disease. No significant change has occurred. Marcelino Hummel MD Course EKG Normal sinus rhythm, normal axis, nonspecific ST changes Caprini VTE Risk Assessment Caprini VTE Risk Assessment: No/Low Risk (score <= 1) Caprini Risk Assessment Model Point Value = 1 Point Value = 2 Point Value = 3 Point Value = 5 Age 41-60 Minor surgery BMI > 25 kg/m2 Swollen legs Varicose veins or History of unexplained or recurrent spontaneous Oral contraceptives or hormone replacement Sepsis (< 1 month) Serious lung disease, including pneumonia (< 1 month) Abnormal pulmonary function Acute myocardial infarction Congestive heart failure (< 1 month) History of inflammatory bowel disease Medical patient at bed rest Age 61-74 Arthroscopic surgery Major open surgery (> 45 min) Laparoscopic surgery (> 45 min) Malignancy Confined to bed (> 72 hours) Immobilizing plaster cast Central venous access Age >= 75 History of VTE Family history of VTE Factor V Leiden Prothrombin [id number] Lupus anticoagulant Anticardiolipin antibodies Elevated serum homocysteine Heparin-induced thrombocytopenia Other congenital or acquired thrombophilia Stroke (< 1 month) Elective arthroplasty Hip, pelvis, or leg fracture Acute spinal cord injury (< 1 month) Prophylaxis Regimen Total Risk Factor Score Risk Level Prophylaxis Regimen 0-1 Low Early ambulation 2 Moderate Order ONE of the following: *Sequential Compression Device (SCD) *Heparin 5000 units SQ BID 3-4 Higher Order ONE of the following medications: *Heparin 5000 units SQ TID *Enoxaparin/Lovenox 40 mg SQ daily (WT < 150 kg, CrCl > 30 mL/min) *Enoxaparin/Lovenox 30 mg SQ daily (WT < 150 kg, CrCl > 10-29 mL/min) *Enoxaparin/Lovenox 30 mg SQ BID (WT < 150 kg, CrCl > 30 mL/min) AND/OR *Sequential Compression Device (SCD) 5 or more Highest Order ONE of the following medications: *Heparin 5000 units SQ TID (Preferred with Epidurals) *Enoxaparin/Lovenox 40 mg SQ daily (WT < 150 kg, CrCl > 30 mL/min) *Enoxaparin/Lovenox 30 mg SQ daily (WT < 150 kg, CrCl > 10-29 mL/min) *Enoxaparin/Lovenox 30 mg SQ BID (WT < 150 kg, CrCl > 30 mL/min) AND *Sequential Compression Device (SCD) Assessment and Plan Assessment and Plan #1 Atypical chest pain-admitted to chest pain center. Ruled out with 3 sets of EKGs, cardiac enzymes, and monitored overnight. Seen and evaluated by Dr. Aleida Addison. Call has been placed to his software sales consultant, Dr. Davis, to discuss if she would like any further cardiac testing before discharge. Discussed possibility of completing CT coronary arteries as he recently completed a chemical stress test. Probability of cardiovascular disease low and will discuss with Dr. Davis before ordering any further tests. This has been discussed in length with patient and he is agreeable to wait for further recommendation from his software sales consultant. He states he is feeling much better now and hopes to make his appointment with Dr. Davis this afternoon. 12:[address] Davis. Agrees to further cardiac testing required. Follow up as previously instructed. This has been discussed with patient who is agreeable to plan of care. Katerina Villalobos Jan 24, 2017 07:57
[2017-01-24] MEDS ORDERED: NITROGLYCERIN 0.4 MG SL 25 TABS/BTL SL PRN (08:00)
[2017-01-24] MEDS ORDERED: ONDANSETRON HCL 4 MG/2 ML VIAL IV PUSH PRN (08:00)
[2017-01-24] MEDS ORDERED: ACETAMINOPHEN 500 MG CPLT PO PRN (08:00)
[2017-01-24 08:01] VITALS: BP 135/77; PULSE 71; RESP 18; TEMP 96.9; O2SAT 97
[2017-01-24 08:45] VITALS: PULSE 70
[2017-01-24] MEDS ORDERED: SODIUM CHLORIDE 0.9% FLUSH 10 ML FLUSH IV FLUSH SCH (09:00)
[2017-01-24] MEDS ORDERED: ASPIRIN 325 MG TAB PO SCH (09:00)
[2017-01-24 12:03] VITALS: BP 138/70; PULSE 62; RESP 24; TEMP 97.9; O2SAT 97
--- NOTE | 2017-01-24 12:27 | EKG ---
Date Performed: 01/23/2017 Time Performed: 15:40:56 PTAGE: 27 years EKG: Sinus rhythm MODERATE VOLTAGE CRITERIA FOR LVH, CONSIDER NORMAL VARIANT NONSPECIFIC T-WAVE ABNORMALITY BORDERLINE ECG PREVIOUS TRACING : 11/24/2016 01.06 Compared to prior tracing no significant change DOCTOR: Ana Calderon Interpretating Date/Time 01/24/2017 12:22:49
--- NOTE | 2017-01-24 12:37 | HHI.DCPOC ---
Discharge Care Plan Diagnosis: (1) Atypical chest pain Goals to Promote Your Health * To prevent worsening of your condition and complications * To maintain your health at the optimal level Directions to Meet Your Goals Take your medications as prescribed Follow your dietary instruction Follow activity as directed Keep your appointments as scheduled Take your immunizations and boosters as scheduled If your symptoms worsen call your PCP, if no PCP go to Urgent Care Center or Emergency Room Smoking is Dangerous to Your Health. Avoid second hand smoke Call the 24-hour hour crisis hotline for domestic abuse at Katerina Villalobos Jan 24, 2017 12:37
--- NOTE | 2017-01-24 18:29 | EKG ---
Date Performed: 01/24/2017 Time Performed: 00:16:41 PTAGE: 27 years EKG: Sinus rhythm WITH SINUS ARRHYTHMIA MODERATE VOLTAGE CRITERIA FOR LVH, CONSIDER NORMAL VARIANT BORDERLINE ECG Sinc e PREVIOUS TRACING , no significant change noted PREVIOUS TRACIN01/24/2017 00.15 DOCTOR: Aleida Addison Interpretating Date/Time 01/24/2017 18:28:22
--- NOTE | 2017-01-24 18:29 | EKG ---
Date Performed: 01/23/2017 Time Performed: 22:32:15 PTAGE: 27 years EKG: Sinus rhythm WITH SINUS ARRHYTHMIA VOLTAGE CRITERIA FOR LVH ABNORMAL ECG Since PREVIOUS TRACING , no significant change noted PREVIOUS TRACIN01/23/2017 15.40 DOCTOR: Aleida Addison Interpretating Date/Time 01/24/2017 18:28:35
== END 2017-01-24 15:10 | disposition home or self-care (01) ==
LOC: NEPC 14:07 → NEDA 21:19 → NEPGCP 22:23
PROVIDERS: ADMIT Internal Medicine Cardiovascular Disease; ATTEND Internal Medicine Cardiovascular Disease
DX: R07.89 Other chest pain (principal); I10 Essential (primary) hypertension; E78.5 Hyperlipidemia, unspecified; R94.31 Abnormal electrocardiogram [ECG] [EKG]; Z82.49 Family history of ischemic heart disease and other diseases of the circulatory system
CPT/HCPCS: 71010; 71020; 80053; 82550; 82552; 83735; 83880; 84484; 85025; 85610; 85730; 93005; 99285; G0378